=== PATIENT | male | born 1935 | race Caucasian/White ===

== ENCOUNTER 2016-12-01 18:20 | Emergency (ER) | payer MEDICARE, OTHER ==
[2016-12-01] MEDS ORDERED: Diphtheria,Pertussis(Acell),Tetanus Vaccine 0.5 ML SDV IM ONE (19:08)
[2016-12-01] MEDS ORDERED: Lidocaine 1% 10 ML MDV INJECT ONE (19:08)
--- NOTE | 2016-12-01 19:13 | EDM.PDOC ---
ED HPI GENERAL MEDICAL PROBLEM - General Chief Complaint: Upper Extremity Injury/Pain Stated Complaint: PULL L NAIL OFF WON'T STOP BLEEDING Time Seen by Provider: 12/01/16 18:58 Source of Information: Reports: Patient History Limitations: Reports: No Limitations - History of Present Illness INITIAL COMMENTS - FREE TEXT/NARRATIVE: Patient is 81-year-old male on Eliquis presents ED complaining of portion of his left third finger fingernail partially pulled off with excessive bleeding after accidentally getting his finger trapped obtain the cushion to his chair and metal bar while attempting to move the chair. States pain is localized. Unable to control the bleeding with initial injury and thus prompted evaluation in the ED. He has no additional complaints to the remaining fingers, hand, wrist or any additional complaints. Patient states it is unclear why he is on eliquis. - Related Data Allergies Allergy/AdvReac Type Severity Reaction Status Date / Time No Known Allergies Allergy Verified 12/01/16 18:31 Home Meds: Home Meds Apixaban [Eliquis] 5 mg PO BID 12/01/16 [History] Aspirin 325 mg PO DAILY 12/01/16 [History] Cephalexin [Keflex] 500 mg PO TID #21 cap 12/01/16 [Rx] Ergocalciferol (Vitamin D2) [Vitamin D2] 50,000 unit PO WEEKLY 12/01/16 [History ] Pantoprazole [ProTONIX] 40 mg PO BEDTIME 12/01/16 [History] Tadalafil [Cialis] 5 mg PO DAILY 12/01/16 [History] Past Medical History Cardiovascular History: Reports: Pacemaker, Stents Gastrointestinal History: Reports: GERD, Hiatal Hernia, Other (See Below) Other Gastrointestinal History: rectal fissure Genitourinary History: Reports: Prostate Disorder Dermatologic History: Reports: Eczema - Past Surgical History HEENT Surgical History: Reports: Cataract Surgery Cardiovascular Surgical History: Reports: Coronary Artery Stent, Pacer GI Surgical History: Reports: Other (See Below) Social & Family History - Family History Family Medical History: Noncontributory - Tobacco Use Smoking Status *Q: Never Smoker - Caffeine Use Caffeine Use: Reports: Coffee, Soda - Recreational Drug Use Recreational Drug Use: No Review of Systems - Review of Systems Review Of Systems: ROS reveals no pertinent complaints other than HPI. ED EXAM, GENERAL - Physical Exam Exam: See Below Exam Limited By: No Limitations General Appearance: Alert, WD/WN Ears: Hearing Grossly Normal Nose: Normal Inspection Throat/Mouth: Normal Voice, No Airway Compromise Neck: Normal Inspection, Supple Respiratory/Chest: No Respiratory Distress, No Accessory Muscle Use Cardiovascular: Normal Peripheral Pulses, Regular Rate, Rhythm Peripheral Pulses: 2+: Radial (L) Extremities: Other (Dried blood to the distal phalanx of the third finger involving the lateral aspect of the nailbed. Minimal bleeding present. Unclear extent of injury develop dried blood. Will have wound soaked.) Neurological: Alert, Oriented, CN II-XII Intact, Normal Cognition, No Motor/ Sensory Deficits Psychiatric: Normal Affect, Normal Mood Skin Exam: Warm, Dry Course - Vital Signs Last Recorded V/S: Last Vital Signs Temp 97.7 F 12/01/16 18:27 Pulse 71 12/01/16 18:27 Resp 18 12/01/16 18:27 BP 164/77 H 12/01/16 18:27 Pulse Ox 96 12/01/16 18:27 - Orders/Labs/Meds Orders: Active Orders 24 hr Category Date Time Status Vaccines to be Administered [RC] PER UNIT ROUTINE Care 12/01/16 19:09 Active Fingers Third Digit Lt F2 [CR] Stat Exams 12/01/16 19:08 Taken Meds: Medications Discontinued Medications Generic Name Dose Route Start Last Admin Trade Name Jer PRN Reason Stop Dose Admin Cephalexin 500 mg 12/01/16 20:35 12/01/16 21:22 Keflex PO 12/01/16 20:36 500 mg ONETIME ONE Administration Diphtheria/Tetanus/Acell Pertussis 0.5 ml 12/01/16 19:08 12/01/16 19:21 Adacel IM 12/01/16 19:09 0.5 ml .ONCE ONE Administration Lidocaine HCl 10 ml 12/01/16 19:08 12/01/16 19:22 Xylocaine 1% INJECT 12/01/16 19:09 10 ml ONETIME ONE Administration - Re-Assessments/Exams Free Text/Narrative Re-Assessment/Exam: Order x-ray of the left middle finger to evaluate for fracture. Tetanus status will be updated. Ordered lidocaine 1% in preparation for closure if required. Unable to completely determine if closure is required due to all the dried blood. Will have the wound soaked. With examination of the finger unable to control bleeding with direct pressure. Performed digital block of the affected finger with 1% lidocaine. Local anesthesia was also required with 1% lidocaine. Ligated bleeding with 2 simple interrupted sutures 4.0 through the existing nail to pull the tissue proximal to the nailbed with success. Small portion of the nail has been completely ripped off. X-ray of the affected finger did show a small tuft fracture present. Will treat for an open fracture with Keflex. Dressing and splint have been applied. Patient will be discharged home. Departure - Departure Time of Disposition: 20:34 Disposition: Home, Self-Care 01 Condition: Good Clinical Impression: Open fracture of tuft of distal phalanx of finger Nailbed laceration, finger Qualifiers: Encounter type: initial encounter Qualified Code(s): S61.319A - Laceration without foreign body of unspecified finger with damage to nail, initial encounter - Discharge Information Prescriptions: Cephalexin [Keflex] 500 mg PO TID #21 cap Instructions: Cast or Splint Care, [id number] Referrals: PCP,Not In Area [Primary Care Provider] - Forms: ED Department Discharge Additional Instructions: Cleanse site twice daily with soap and water, pat dry, reapply triple antibiotic ointment and dressing to site with splint. Small fracture to the distal tip of the finger will heal and next 4 weeks. Continue wearing splint during this time. Take the Keflex as prescribed. If bleeding starts again please use direct pressure as long as needed to subside the bleeding. Return to the [facility] in 10 days to have sutures removed. Return to the ED for any new or worsening symptoms. - My Orders Last 24 Hours: My Active Orders 12/01/16 19:08 Fingers Third Digit Lt F2 [CR] Stat 12/01/16 19:09 Vaccines to be Administered [RC] PER UNIT ROUTINE - Assessment/Plan Last 24 Hours: My Active Orders 12/01/16 19:08 Fingers Third Digit Lt F2 [CR] Stat 12/01/16 19:09 Vaccines to be Administered [RC] PER UNIT ROUTINE
[2016-12-01] MEDS ORDERED: Cephalexin 500 MG Cap PO ONE (20:35)
--- NOTE | 2016-12-02 08:15 | CR ---
Left third finger: Four views of the left third finger were obtained. Comparison: No previous study. Joint space narrowing and mild osteophytes are seen within the DIP joint. Mild joint space narrowing is noted within the PIP joint. Mild soft tissue swelling is noted. No acute fracture or dislocation is seen. Impression: 1. Mild degenerative change. Soft tissue swelling. 2. Nothing acute is seen on three-view left third finger study. Diagnostic code #2
== END 2016-12-01 21:27 | disposition home or self-care (01) ==
LOC: JD.ED 18:20
DX: S62.633B Displaced fracture of distal phalanx of left middle finger, initial encounter for open fracture (principal); K21.9 Gastro-esophageal reflux disease without esophagitis; Z98.49 Cataract extraction status, unspecified eye; Z95.5 Presence of coronary angioplasty implant and graft; Z79.82 Long term (current) use of aspirin; Z79.899 Other long term (current) drug therapy; W23.0XXA Caught, crushed, jammed, or pinched between moving objects, initial encounter; Z23 Encounter for immunization
CPT/HCPCS: 12001; 73140; 90471; 90715; 99283; A9270